=== PATIENT | female | born 1955 | race Hispanic/Latino ===

== ENCOUNTER 2017-09-11 18:53 | Emergency (ER) | payer MEDICARE ==
--- NOTE | 2017-09-11 19:55 | Emergency Department Report ---
ED Abdominal Pain HPI - General Chief Complaint: Abdominal Pain Stated Complaint: ABD PAIN Time Seen by Provider: 09/11/17 19:55 Source: patient, EMS Mode of arrival: Stretcher Limitations: No Limitations - History of Present Illness MD Complaint: abdominal pain -: Sudden Location: epigastric Radiation: back Migration to: no migration Severity: moderate Severity scale (0 -10): 3 Quality: cramping, sharp Consistency: now resolved Improves With: nothing Worsens With: nothing Associated Symptoms: denies other symptoms - Related Data Home Medications Medication Instructions Recorded Confirmed Last Taken ALBUTEROL Inhaler [ProAir HFA 2 puff IH QID PRN 01/25/15 02/02/15 01/31/15 Inhaler] 2 puffs Aspirin [Adult Low Dose Aspirin EC] 81 mg PO DAILY 01/25/15 02/02/15 02/01/15 81mg Lisinopril 20 mg PO DAILY 01/25/15 02/02/15 02/01/15 20mg Paroxetine HCl 20 mg PO DAILY 01/25/15 02/02/15 02/01/15 20mg Temazepam 30 mg PO QHS 01/25/15 02/02/15 02/01/15 30mg Pravastatin Sodium 20 mg PO HS 02/02/15 02/02/15 02/01/15 20mg Previous Rx's Medication Instructions Recorded Last Taken Type Clopidogrel Bisulfate [Plavix] 75 mg PO DAILY #30 tablet 01/25/15 02/01/15 Rx 75mg Cilostazol [Pletal] 50 mg PO BID #60 tablet 02/02/15 Unknown Rx Allergies Allergy/AdvReac Type Severity Reaction Status Date / Time No Known Allergies Allergy Verified 02/02/15 07:06 ED Review of Systems ROS: Stated complaint: ABD PAIN Other details as noted in HPI Comment: All other systems reviewed and negative Constitutional: denies: chills, fever Eyes: denies: eye pain, eye discharge ENT: denies: ear pain, dental pain Respiratory: denies: cough, shortness of breath Cardiovascular: denies: chest pain, palpitations, dyspnea on exertion Endocrine: no symptoms reported Gastrointestinal: abdominal pain. denies: nausea, vomiting, diarrhea Genitourinary: denies: urgency, dysuria, frequency Musculoskeletal: denies: back pain, joint swelling Skin: denies: rash, change in color Neurological: denies: headache, weakness, numbness, paresthesias Psychiatric: denies: anxiety, depression Hematological/Lymphatic: denies: easy bleeding, easy bruising ED Past Medical Hx - Past Medical History Hx Hypertension: Yes Hx Arthritis: Yes Hx Headaches / Migraines: Yes Hx COPD: Yes Hx HIV: No - Surgical History Additional Surgical History: gallbladder 2 years ago - Social History Smoking Status: Current Every Day Smoker Substance Use Type: None - Medications Home Medications: Home Medications Medication Instructions Recorded Confirmed Last Taken Type ALBUTEROL Inhaler [ProAir HFA 2 puff IH QID PRN 01/25/15 02/02/15 01/31/15 History Inhaler] 2 puffs Aspirin [Adult Low Dose Aspirin EC] 81 mg PO DAILY 01/25/15 02/02/15 02/01/15 History 81mg Clopidogrel Bisulfate [Plavix] 75 mg PO DAILY #30 tablet 01/25/15 02/02/1502/01 Rx 75mg Lisinopril 20 mg PO DAILY 01/25/15 02/02/15 02/01/15 History 20mg Paroxetine HCl 20 mg PO DAILY 01/25/15 02/02/15 02/01/15 History 20mg Temazepam 30 mg PO QHS 01/25/15 02/02/15 02/01/15 History 30mg Cilostazol [Pletal] 50 mg PO BID #60 tablet 02/02/15 Unknown Rx Pravastatin Sodium 20 mg PO HS 02/02/15 02/02/15 02/01/15 History 20mg ED Physical Exam - General Limitations: No Limitations General appearance: alert, in no apparent distress - Head Head exam: Present: atraumatic, normocephalic, normal inspection - Eye Eye exam: Present: normal appearance, PERRL, EOMI Pupils: Present: normal accommodation - ENT ENT exam: Present: normal exam, normal orophraynx, mucous membranes moist - Neck Neck exam: Present: normal inspection, full ROM. Absent: tenderness - Respiratory Respiratory exam: Present: normal lung sounds bilaterally. Absent: respiratory distress, wheezes, rhonchi - Cardiovascular Cardiovascular Exam: Present: regular rate, normal rhythm, normal heart sounds - GI/Abdominal GI/Abdominal exam: Present: soft. Absent: distended, tenderness, guarding, rebound, normal bowel sounds - Extremities Exam Extremities exam: Present: normal inspection, full ROM, normal capillary refill. Absent: tenderness - Back Exam Back exam: Present: normal inspection, full ROM. Absent: tenderness, CVA tenderness (R), CVA tenderness (L) - Neurological Exam Neurological exam: Present: alert, oriented X3, CN II-XII intact - Psychiatric Psychiatric exam: Present: normal affect, normal mood - Skin Skin exam: Present: warm, dry, intact, normal color. Absent: rash ED Course Vital Signs 09/11/17 09/11/17 19:15 19:45 Temperature 98.6 F Pulse Rate 80 81 Respiratory 16 14 Rate Blood Pressure 110/74 Blood Pressure 115/46 [Left] O2 Sat by Pulse 94 99 Oximetry - Reevaluation(s) Reevaluation #1: 09/11/17 23:57 I discussed the patient came with the hospitalist on-call Dr. Barragan. He will admit patient to the hospital for further evaluation and management. ED Medical Decision Making - Lab Data Result diagrams: 09/11/17 19:37 09/11/17 19:37 - EKG Data -: EKG Interpreted by Me Rate: normal (77) - EKG Data When compared to previous EKG there are: previous EKG unavailable Interpretation: no acute changes, nonspecific ST-T wave nixon, other (Old Q waves in the anterior leads.) - Radiology Data Radiology results: report reviewed, image reviewed - Medical Decision Making Abdominal Pain. Critical care attestation.: If time is entered above; I have spent that time in minutes in the direct care of this critically ill patient, excluding procedure time. ED Disposition Clinical Impression: Abdominal pain Qualifiers: Abdominal location: epigastric Qualified Code(s): R10.13 - Epigastric pain Acute pancreatitis Qualifiers: Pancreatitis type: unspecified pancreatitis type Acute pancreatitis complication: unspecified Qualified Code(s): K85.90 - Acute pancreatitis without necrosis or infection, unspecified Disposition: DC-09 OP ADMIT IP TO THIS HOSP Is pt being admited?: Yes Does the pt Need Aspirin: No Condition: Stable Instructions: Abdominal Pain (ED) Referrals: PRIMARY CARE, [Primary Care Provider] - 3-5 Days
[2017-09-11 20:00] LABS: Basophils # (Auto) 0.1 K/mm3 (0.0-0.1); Basophils % (Auto) 0.4 % (0.0-1.8); Eosinophils # (Auto) 0.2 K/mm3 (0.0-0.4); Eosinophils % (Auto) 1.1 % (0.0-4.3); Hematocrit 40.3 % (30.3-42.9); Hemoglobin 13.5 gm/dl (10.1-14.3); Lymphocytes # (Auto) 1.3 K/mm3 (1.2-5.4); Lymphocytes % (Auto) 8.2 % (13.4-35.0); Mean Corpuscular HGB Conc 34 % (30-34); Mean Corpuscular Hemoglobin 29 pg (28-32); Mean Corpuscular Volume 86 fl (79-97); Monocytes # (Auto) 0.9 K/mm3 (0.0-0.8); Monocytes % (Auto) 5.8 % (0.0-7.3); Platelet Count 325 K/mm3 (140-440); Red Blood Count 4.67 M/mm3 (3.65-5.03); Red Cell Distribution Width 14.3 % (13.2-15.2)
[2017-09-11 20:01] LABS: Bilirubin,Urine NEG (Negative); Blood,Urine MOD (Negative); Color,Urine Yellow (Yellow); Mucus,Urine FEW /HPF; Protein,Urine <15 mg/dL mg/dL (Negative); Urobilinogen,Urine < 2.0 mg/dL (<2.0)
[2017-09-11] MEDS ORDERED: NACL 0.9% 1000 ML 1,000 ML IV ONE (20:01)
[2017-09-11 20:26] LABS: Alanine Aminotransferase 22 units/L (7-56); Albumin 4.1 g/dL (3.9-5); BUN/Creatinine Ratio 12; Blood Urea Nitrogen 7 mg/dL (7-17); Calcium 9.4 mg/dL (8.4-10.2); Hemolysis Index 10
[2017-09-11 20:28] LABS: INR 0.91 (0.87-1.13)
[2017-09-11 20:29] LABS: Partial Thromboplastin Time 36.3 Sec. (24.2-36.6)
--- NOTE | 2017-09-11 22:42 | Cat Scan Report ---
FINAL REPORT PROCEDURE: CT ABDOMEN PELVIS W CON TECHNIQUE: Computerized axial tomography of the abdomen and pelvis was performed after the IV injection of iodinated nonionic contrast. HISTORY: abdominal pain COMPARISON: 06/17/2015 FINDINGS: Centrilobular emphysematous changes are noted involving the visualized bilateral lower lungs. Liver, spleen, and adrenal glands are within normal limits. Small areas of parenchymal scarring are noted involving the lower pole right kidney. 1.5 x 1.7 centimeter simple cyst is noted in the lower pole right kidney. Otherwise bilateral kidneys demonstrate normal enhancement without hydronephrosis. Urinary bladder is partially filled with normal outlines. Bilateral iliac stents are identified. Aorta is of normal caliber. Right common iliac artery demonstrates moderate to severe degree stenosis. There is no free fluid or free air. Status post cholecystectomy. Small bowel loops are within normal limits. Appendix is normal. Vertebral alignment is normal. Mild degree spinal canal stenosis is noted at L3-4, L4-5 and L5-S1. Lumbar pedicles are short.. 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
[2017-09-11] MEDS ORDERED: ZOSYN/NS 4.5GM/100ML 4.5 GM/100 ML VIAL IV SCH (23:45)
[2017-09-12 00:28] VITALS: BP 123/34
== END 2017-09-12 00:42 | disposition admitted as inpatient to this hospital (09) ==
LOC: ED 18:53
DX: K85.90 Acute pancreatitis without necrosis or infection, unspecified (principal); Z79.82 Long term (current) use of aspirin; G43.909 Migraine, unspecified, not intractable, without status migrainosus; J44.9 Chronic obstructive pulmonary disease, unspecified; F17.200 Nicotine dependence, unspecified, uncomplicated
CPT/HCPCS: 36415; 74177; 80053; 81001; 82550; 83690; 84484; 85025; 85610; 85730; 93005; 93010; 96360; 99285; J2543; J7030; Q9967